=== PATIENT | female | born 1990 | race Caucasian/White ===

== ENCOUNTER 2022-04-09 17:01 | Emergency (ER) | payer BC ==
[2022-04-09] MEDS ORDERED: Ketorolac 30 MG/ML SDV IM ONE (18:49)
[2022-04-09] MEDS ORDERED: Acetaminophen/HYDROcodone 325-5 MG Tab PO ONE (19:32)
== END 2022-04-09 19:56 | disposition home or self-care (01) ==
LOC: MW.ED 17:01
DX: R07.89 Other chest pain (principal)
CPT/HCPCS: 71046; 96372; 99283; A9270; J1885